=== PATIENT | female | born 1975 | race Caucasian/White ===

== ENCOUNTER 2021-04-23 15:38 | Inpatient (IN) | payer BC, OTHER ==
[~2021-04-23] VITALS: Ht 165.1 cm; Wt 142.0 kg
--- NOTE | ~2021-04-23 | O ---
[facility] [place] [address] OPERATIVE REPORT Name: SHAYLEE HENRY Room #: 447-P [facility] IN M.R.#: [id number] Admission: 04/23/21 Attend Phys: Rah Isabel, Discharge: Date of : 79 Report #: [id number] THIS REPORT FOR: cc: FAM - No family physician/PCP FAM - No family physician/PCP Rah Isabel MD ~ DATE OF SERVICE: 04/24/2021 PREOPERATIVE DIAGNOSIS: Acute cholecystitis. POSTOPERATIVE DIAGNOSIS: Acute cholecystitis. OPERATION: Laparoscopic cholecystectomy. SURGEON: Rah Isabel MD ANESTHESIA: General. ESTIMATED BLOOD LOSS: Minimal. SPECIMENS: Gallbladder. DESCRIPTION OF PROCEDURE: After informed consent was obtained, the patient was brought to the operating room and placed supine. SCDs were placed and working, preoperative antibiotics were administered, general anesthesia was induced. The abdomen was prepped and draped in the usual sterile fashion. A 5-mm incision was made in the left upper quadrant. A 5-mm trocar was placed under direct vision. Pneumoperitoneum was established. A supraumbilical 5-mm trocar was then placed under direct vision. Three right upper quadrant 5-mm ports were placed. Gallbladder was then grasped at the fundus and retracted cephalad. It was edematous and inflamed consistent with cholecystitis. The fundus was grasped and retracted laterally. I dissected out the cystic duct and cystic artery. I dissected out the cystic plate fully. I identified all the structures and the cystic plate was fully identified two-thirds of the way up to the gallbladder. The cystic duct and artery were clipped and ligated leaving 2 clips on the remaining artery and a clip and a PDS Endoloop on the remaining duct. Gallbladder was then taken off the liver bed with electrocautery. It was placed into an Endopouch and removed. Fascia was then closed with a [id number] 0 Vicryl. Skin was closed with 4-0 Monocryl. Incisions were dressed with Steri-Strips. COMPLICATIONS: None. [facility] [address] [place] [address] OPERATIVE REPORT Name: SHAYLEE HENRY Room #: 447-P [facility] IN M.R.#: [id number] Admission: 04/23/21 Attend Phys: Rah Isabel, Discharge: Date of : 79 Report #: [id number] DISPOSITION: The patient was taken to recovery in satisfactory condition. By: [id number] Rah Isabel MD /nt
[2021-04-23 16:00] VITALS: BP 192/114
[2021-04-23 16:20] LABS: BASOPHILS 0.4 % (0.0-2.0); EOSINOPHILS 0.5 % (0.0-3.0); HEMATOCRIT 42.1 % (37.0-47.0); HEMOGLOBIN 14.3 gm/dL (12.0-15.0); MCH 31.4 pg (26.0-34.0); MCV 92.3 fL (80.0-100.0); MONOCYTES 2.6 % (1.0-8.0); PLATELET COUNT 288 thou/uL (150-400); POLYS 86.5 % (36.0-66.0); RBC 4.56 mil/uL (4.20-5.00); RDW 13.6 % (10.5-14.5); WBC 18.5 thou/uL (4.0-11.0)
[2021-04-23 16:29] LABS: CALCIUM 9.7 mg/dL (8.5-10.1); CREATININE 0.8 mg/dL (0.6-1.0); POTASSIUM 4.2 mmol/L (3.5-5.1)
[2021-04-23 16:40] LABS: ALBUMIN 3.8 g/dL (3.4-5.0); TOTAL BILIRUBIN 0.6 mg/dL (0.2-1.0); TOTAL PROTEIN 8.9 g/dL (6.4-8.2)
--- NOTE | 2021-04-23 18:02 | NUR ---
IV TEAM PAGED TO ASSIST WITH BETTER IV FOR CTA
[2021-04-23 19:27] LABS: URINE BILIRUBIN NEGATIVE (Negative); URINE BLOOD TRACE (Negative); URINE CLARITY CLEAR; URINE COLOR YELLOW; URINE GLUCOSE-RANDOM* NEGATIVE (Negative); URINE KETONES 3+ (Negative); URINE LEUKOCYTES-REFLEX NEGATIVE (Negative); URINE NITRITE-REFLEX NEGATIVE (Negative); URINE PROTEIN (DIPSTICK) NEGATIVE (Negative); URINE SPECIFIC GRAVITY >= 1.030 (1.005-1.035); URINE UROBILINOGEN 0.2 E.U./dl (0.2-1.0)
[2021-04-23] MEDS ORDERED: LEXAPRO 10 MG T10 M2 PO (19:44)
[2021-04-23] MEDS ORDERED: SYNTHROID175 MC1 PO (19:44)
[2021-04-23] MEDS ORDERED: LOESTRIN FE 1-1 EACH PO (19:45)
[2021-04-23] MEDS ORDERED: WOMEN MULTIVIT1 EAC1 PO (19:45)
[2021-04-23 19:54] LABS: URINE REDUCING SUBSTANCE NEGATIVE
[2021-04-24] VITALS (7 sets, daily range): BP systolic 128–181; BP diastolic 60–103
--- NOTE | 2021-04-24 09:46 | EKG ---
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1975 Requested By: Desiree Medley Order Number: [id number] MD: Jerrod Kim Measurements Intervals Mandan Rate: 55 P: 1 OR: 153 QRS: 6 QRSD: 92 T: 32 QT: 454 QTc: 435 Interpretive Statements Sinus rhythm LVH by voltage Anterior Q waves, possibly due to LVH Baseline wander in lead(s) V5,V6 No previous ECG available for comparison Electronically Signed On 04-24-2021 9:46:38 CDT by Jerrod Kim [email or web address] <ELECTRONICALLY SIGNED> By: Jerrod Kim MD, [facility] 04/24/21 0946 1546 1546 Jerrod Kim MD, FACC /EPI
--- NOTE | 2021-04-24 09:48 | EKG ---
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 04/24/21946 14 14 Jerrod Kim MD, FACC /EPI
--- NOTE | 2021-04-24 11:40 | NUR ---
Assume pt care at 830am.Pt arrived to floor from emergency room in stable condition. Admission hx.assessment and careplan completed.vss.Pt informed about going for surgery at 11am.Family here to visit,updates given. Received call from preop,pt updates given. At 1125,pt left for surgery per bed.Will continue to monitor.
--- NOTE | 2021-04-24 19:54 | NUR ---
RN ASSUMED PT'S CARE AT 1530-1900PM , PT HAS DONE PROCEDURE CHOLECYSTECTOMY TODAY, PT'S VS ARE STABLE AFTER PROCEDURE, PT'S ABD PAIN IS IN CONTORL , PT STARTS IV ABX AND IV FLUID, PT IS TOLERATIVE DINNER, PT'S ABD SMALL DRESSIND IS DRY AND CLEAN , PT HAS GETTING TO BSC AND HAS URINE 1000ML,
--- NOTE | 2021-04-25 03:52 | NUR ---
PT IS A/O X4 AND IS UP WITH SBA TO THE BSC FOLLOWING PROCEDURE. LAP SITES INTACT. BLOODY DRAINAGE NOTED AT UMBILICAL LAPSITE. PT C/O PAIN. PRN PAIN MEDICATION GIVEN DIRECTED. FALL PRECAUTIONS IN PLACE, CALL LIGHT IS WITHIN REACH. PT CALLS OUT APPROPRIATELY FOR ASSISTANCE.
[2021-04-25 08:50] VITALS: BP 124/84
--- NOTE | 2021-04-25 10:46 | NUR ---
A/O X 4. ROOM AIR. STAND BY ASSIST. USES BEDSIDE COMMODE. RIGHT HAND IV AND LEFT AC IV- DRESSING DRY, CLEAN, AND INTACT. INFUSING 0.45 NS @ 100 MLS/HR. 6 LAPSITES ON ABD WITH STERI STRIPS WITH DRIED BLOOD. MORPHINE GIVEN FOR ABD PAIN 01/07.
[2021-04-25 15:24] VITALS: BP 150/94
[2021-04-25 19:43] VITALS: BP 112/67
--- NOTE | 2021-04-26 04:03 | NUR ---
ASSESSED AT START OF SHIFT PT C/O PAIN. PO HYDROCODONE GIVEN. IV INTACT AND FLUIDS INFUSING. PT HAD A HUGE BM THIS SHIFT. SCD'S ON BLE. FALL PREC IN PLACE AND CALL LIGHT AT REACH. [address] WILL CONT TO MONITOR.
[2021-04-26 05:07] VITALS: BP 135/81
[2021-04-26 07:57] VITALS: BP 150/86
--- NOTE | 2021-04-26 10:09 | NUR ---
A/O X 4. ROOM AIR. AD MORE. RIGHT HAND IV-DRESSING DRY, CLEAN, AND INTACT. 0.45 NS @ 100 MLS/HR INFUSING. 6 LAPSITES ON ABD STERI STRIPS INTACT. ABD PAIN 3/10. NORCO GIVEN FOR PAIN. STEADY GAIT. TOLERATING IV ABT ZOSYN WELL, NO ADVERSE EFFECTS NOTED.
[2021-04-26] MEDS ORDERED: NORCO5 PO (10:18)
[2021-04-26 10:22] VITALS: BP 150/86
--- NOTE | 2021-04-26 13:56 | NUR ---
ASSESSMENT: CM REVIEWED CHART AND SPOKE WITH PT. PT IS S/P LUIS AQUINO. PT REPORTS SHE LIVES IN A HOUSE WITH HER DAUGHTER. PT REPORTS SHE IS FULLY INDEPENDENT WITH ADLS AND AMBULATION. PT DENIES ANY PAST HX OF HH OR SNF. PT REPORTS HAVING A PCP. CM DISCUSSED ROLE. PT DOES NOT ANTICIPATE HAVING ANY NEEDS FROM CM . CASE CLOSED.
--- NOTE | 2021-04-28 11:08 | PATH ---
[facility] [place] [address] PATHOLOGY RPT PROCEDURE Name: SHAYLEE HENRY Room #: 447-P [facility] IN .R.#: [id number] Admission: 04/23/21 Date of : 79 Discharge: 04/26/21 Report #: [id number] Path Case #: [id number] [facility] Accession Number: [id number] . 01 Material submitted: . gallbladder - GALLBLADDER . 01 Clinical history: . LAPAROSCOPIC CHOLECYSTECTOMY . 02 Diagnosis: Gallbladder, cholecystectomy: - Moderate acute cholecystitis associated with hemorrhage and ulceration. - Cholelithiasis. (IUV:director of cardiopulmonary services; 04/27/2021) MBR 04/27/2021 1328 Local . 02 Electronically signed: . Fernanda Ordaz MD, Pathologist NPI- [id number] . 01 Gross description: . Fixative: Formalin Labeled: Gallbladder Specimen received: Intact gallbladder Dimensions: 9.9 x 3.0 x 3.0 cm Serosa: Light murguia-collins Lymph node: None identified Mucosa: Velvety to focally smooth and dark brown Average wall thickness: 0.1 cm Calculi: Present, smooth to multifaceted and black to light yellow Abnormalities: None identified . A1- Technical Consultant body, fundus, and the cystic duct margin. ([facility]; 04/26/2021) [facility] 04/26/2021 1519 Local . 02 Pathologist provided ICD-10: K80.00, K82.8 . 02 CPT . 391892 Specimen Comment: A courtesy copy of this report has been sent to [phone] Specimen Comment: Report sent to Specimen Comment: A duplicate report has been generated due to demographic updates. Performed at: [address] [address] PATHOLOGY RPT PROCEDURE Name: SHAYLEE HENRY Room #: 447-P [facility] IN M.R.#: [id number] Admission: 04/23/21 Date of : [birth year] Discharge: 04/26/21 Report #: [id number] Path Case #: [id number] [address] [id number] MD Coy Green MD Phone: [phone] Performed at: [address] [id number] MD Fernanda Ordaz MD Phone: [phone]
== END 2021-04-26 11:43 | disposition home or self-care (01) | DRG 419 ==
LOC: ER 15:38 → EROBS 21:23 → 4S 04-24 08:54
PROVIDERS: Emergency Medicine; ADMIT Surgery; ATTEND Surgery
PROC: 0FT44ZZ Resection of Gallbladder, Percutaneous Endoscopic Approach (ICD-10-PCS; principal; 2021-04-24)
DX: K81.0 Acute cholecystitis (principal); Z88.8 Allergy status to other drugs, medicaments and biological substances; Z91.041 Radiographic dye allergy status; Z79.899 Other long term (current) drug therapy
CPT/HCPCS: 10195; 50010; 50101; 50411; 50555; 51297; 51489; 52265; 52266; 53307; 53310; 53312; 53314; 54022; 55245; 56462; 56525; 56526; 58574; 62110; 62900; 70005